=== PATIENT | female | born 1980 | race Two or more races ===

== ENCOUNTER 2021-03-24 09:51 | Outpatient (REF) | payer OTHER, SELFPAY ==
[2021-03-24 10:10] LABS: MANUAL DIFF FLAG NO
[2021-03-24 10:44] LABS: Estimated Average Glucose 100 mg/dL; Hemoglobin A1c % 5.1 %
[2021-03-24 10:47] LABS: Basophils Percent Auto 0.7 % (0-2); Eosinophils Absolute Auto 0.1 X10*3/uL (0.0-0.4); Eosinophils Percent Auto 1.4 % (0-4); Hematocrit 39.3 % (37.0-47.0); Imm Gran Abs Auto 0.01 X10*3/uL (0.00-0.03); Imm Gran Pct Auto 0.2 % (0.0-0.4); Lymphocytes Absolute Auto 1.2 X10*3/uL (1.2-4.9); Mean Corpuscular HGB Conc 33.1 g/dl (31.0-35.0); Mean Corpuscular Volume 93.6 fL (80.0-98.0); Monocytes Absolute Auto 0.4 X10*3/uL (0.1-1.2); Monocytes Percent Auto 8.2 % (2-11); Neutrophils Absolute Auto 2.7 x10*3/uL (2.0-8.3); Neutrophils Percent Auto 61.5 % (45-73); Platelet Count 267 X10*3/uL (160-400); Red Cell Distribution Width 12.3 % (11.0-16.0); White Blood Count 4.4 X10*3/uL (4.8-10.8)
[2021-03-24 11:13] LABS: Alanine Aminotransferase 14 U/L (0-31); Albumin Level 4.1 g/dL (3.5-5.0); Alkaline Phosphatase 38 U/L (39-117); Anion Gap 10 (12-20); Aspartate Amino Transferase 17 U/L (5-31); Bilirubin Total 0.5 mg/dL (0.0-1.0); Blood Urea Nitrogen 13 mg/dL (9-16); Calcium 9.2 mg/dL (8.4-10.2); Carbon Dioxide 29 mmol/L (22-29); Chloride 103 mmol/L (96-108); Cholesterol 213 mg/dL; Estimated Glomerular Filt Rate > 60; Glucose Fasting 80 mg/dL (60-99); HDL Cholesterol 80 mg/dL; LDL Cholesterol Calculated 123 mg/dl; Potassium 4.1 mmol/L (3.3-5.1); Sodium 138 mmol/L (135-145); Triglycerides 51 mg/dL
[2021-03-24 11:34] LABS: TSH reflex Free T4 3.23 uIU/mL (0.32-4.0)
[2021-03-24 11:43] LABS: Folate 9.1 ng/mL (> or = 4.0); Vitamin B12 498 pg/mL (200-900)
[2021-03-28 13:16] LABS: Vitamin D 25-OH, D2 <4 ng/mL; Vitamin D 25-OH, D3 26 ng/mL; Vitamin D 25-OH, Total 26 ng/mL (30-100)
== END 2021-03-24 09:52 | disposition home or self-care (01) ==
LOC: HO.LAB 09:51
PROVIDERS: Visit Provider Nurse Practitioner Acute Care
DX: Z00.00 Encounter for general adult medical examination without abnormal findings (principal)
CPT/HCPCS: 36415; 80053; 80061; 82306; 82607; 82746; 83036; 84443; 85025

== ENCOUNTER 2023-03-24 08:38 | Outpatient (AMB) | payer OTHER, SELFPAY ==
--- NOTE | 2023-03-24 08:44 | A.OFFPC_ITS ---
Vital Signs 03/24/23 08:45 03/24/23 09:14 Height 5 ft 4.5 in Weight 125 lb 6 oz BMI 21.2 BP 114/62 102/58 L Blood Pressure Location Lt brachial Rt brachial Position Sitting Sitting Pulse 71 Pulse Source Pulse Oximeter Pulse Oximetry (%) 100 Oxygen Delivery Method Room Air Intake Visit Reasons: Transfer of Care/[facility] Allergies No Known Allergies Allergy (Verified 03/24/23 09:02) Medication List - Last Reconciled 03/24/23 by Romy Jama, RELIGIOUS EDUCATION DIRECTOR- qotydypmxy-qcnvigynwzveu-dvzl 50-300-40 mg (Fioricet) 1 cap PO Q8H 4 days cholecalciferol (vitamin D3) 50 mcg PO DAILY Tobacco use date assessed: 03/24/23 Dental Screening Dental Screen Date: 03/24/23 Did you have a dental visit in the last 12 months?: Yes Did you have a dental problem in the last 6 months where you did not have access to dental care?: No Was dental information given to patient?: Patient has dentist HPI HPI Comments History of Present Illness Details 42-year-old female with vitamin-D deficiency, environmental allergies, migraine with aura, eczema, former smoker status post bunionectomy Health maintenance Mammogram - ordered today Pap smear - due, 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 This started 4-5 months ago. Admits hx of ETD to this ear at age 5-6 years old. Does not use ear buds. No drainage from the L ear. Rash on back [place] farm, thought it was allergic. Used topical eczema treatment w/o relief. Developed hives a few months after getting COVID vaccine. Was present for 1 year. 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 and was placed on 12 week therapy. Migraines well controlled. Uses rescue meds only. Reports tension and migraine type headaches. Tension headaches 2x/month and migraines w/ visual aura about twice per year. [facility] Medical History Environmental allergies Seasonal allergies Mgrn w aura wo ntrc mgrn Surgical History History of bunionectomy Social History Housing: Apartment Alcohol intake: current Alcohol intake frequency: a few times a month Patient Tobacco Use Status: Former Tobacco user Tobacco use type: Cigarette Years Smoked: 10 e-Cigarette/Vaping Use: Never Used service: No Current occupational status: unemployed Cognitive needs: No Hearing needs: No Vision needs: No Questionnaire PHQ-9 Over the last 2 weeks, how often have you been bothered by any of the following problems? 1. Little interest or pleasure in doing things: not at all 2. Feeling down, depressed, or hopeless: not at all 3. Trouble falling or staying asleep, or sleeping too much: not at all 4. Feeling tired or having little energy: not at all 5. Poor appetite or overeating: not at all 6. Feeling bad about yourself - or that you are a failure or have let yourself or your family down: not at all 7. Trouble concentrating on things, such as reading the newspaper or watching television: not at all 8. Moving or speaking so slowly that other people could have noticed. Or the opposite - being so fidgety or restless that you have been moving around a lot more than usual: not at all 9. Thoughts that you would be better off or of hurting yourself in some way: not at all Total score: 0 Depression Screening Interpretation: Negative Depression Screening Done: Yes 20348 - PHQ-9 Billing: Yes Source: Developed by Drs. Herson Mcfadden, Mony Espinoza, Xavier Noyola and colleagues, with an educational louise from [employer]. Thrive Questionnaire Date Thrive assessed: 03/24/23 I am a: Patient What is your living situation today?: I have a steady place to live Within the past 12 months, did the food you bought not last and you didn't have the money to get more?: Never true Within the past 12 months, did you worry whether your food would run out before you got money to buy more?: Never true Do you have trouble paying for medicines?: No Do you have trouble getting transportation to medical appointments?: No Do you have trouble paying your heating and electricity bill?: No Do you have trouble taking care of your child, family member or friend?: No Do you have trouble with day-to-day activities such as bathing, preparing meals, shopping, managing finances, etc.?: No Are you currently unemployed and looking for a job?: No Are you interested in more education?: No Please select the resources that you would like help with: None Currently or been in a relationship where the following occur: no concerns reported THRIVE Score: 0 AUDIT C Alcohol Use Questionnaire (AUDIT-C) 1. How often do you have a drink containing alcohol?: Never 2. How many drinks containing alcohol do you have on a typical day when you are drinking?: 1 or 2 3. How often do you have six or more drinks on one occasion?: Never Total Score: 0 Score Reviewed/Action Taken: Yes REBECCA-7 AMB Questionnaire REBECCA-7 Date REBECCA - 7 assessed: 03/24/23 Feeling nervous, anxious, or on edge: 0 = Not at all Not being able to stop or control worryin = Not at all Worrying too much about different things: 0 = Not at all Trouble relaxin = Not at all Being so restless that it is hard to sit still: 0 = Not at all Becoming easily annoyed or irritable: 0 = Not at all Feeling afraid as if something awful might happen: 0 = Not at all Total REBECCA-7 score (0-4 normal; 5-9 mild; 10-14 moderate; 15-21 severe): 0 Source: Developed by Drs. Herson Mcfadden, Mony Espinoza, Xavier Noyola and colleagues, with an educational louise from [employer]. REBECCA-7 Assessment Billing REBECCA-7 Assessment Tool: REBECCA-7 Assessment 76103 Review of Systems Const All systems reviewed & are unremarkable except as noted in HPI and below Physical exam (Primary Care) Vital Signs: Last Vital Signs Pulse 71 03/24/23 08:45 BP 102/58 L 03/24/23 09:14 Pulse Ox 100 03/24/23 08:45 Oxygen Delivery Method Room Air 03/24/23 08:45 BMI result Body Mass Index 21.2 Tobacco/Smoking Status: Tobacco use Status Tobacco use date assessed 03/24/23 03/24/23 08:49 Patient Tobacco Use Status Former Tobacco user 03/24/23 08:45 Tobacco use type Cigarette 03/24/23 08:45 e-Cigarette/Vaping Use Never Used 03/24/23 08:45 PHQ-9: PHQ-9 Score PHQ-9: Total score 0 03/24/23 09:04 Depression Screening Interpretation: Negative Thrive Assessment: Date of Thrive Assessment Date Thrive assessed 03/24/23 03/24/23 08:49 Currently or been in a relationship where the following occur: no concerns reported Const Other: Pleasant awake alert oriented TM intact clear bilat, hearing within normal limits Mucous membranes moist Regular rate and rhythm Lung sounds clear to auscultation bilat Eczematous rash to posterior trunk from the neck down to waistline without secondary excoriations were signs of infection. 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 daily for at least 1 month. I have sent in a new prescription for triamcinolone ointment which she can use as directed. I have also placed a referral to Dermatology for further evaluation and treatment should this treatment plan not remedy her rash Code(s): L30.9 - Dermatitis, unspecified Qualifiers: Eczema type: other Qualified Code(s): L30.8 - Other specified dermatitis (2) Hearing problem of both ears: Code(s): H91.93 - Unspecified hearing loss, bilateral Plan: Benign exam today of her ears. I have placed a referral to ENT for further evaluation and treatment (3) Screening for cervical cancer: Code(s): Z12.4 - Encounter for screening for malignant neoplasm of cervix Plan: Refer to [facility] inspector raw quartz for routine Pap smear and [facility] (4) Laboratory exam ordered as part of routine general medical examination: Code(s): Z00.00 - Encounter for general adult medical examination without abnormal findings (5) Vitamin D deficiency: Comment: Currently on vitamin-D supplementation. Will repeat vitamin-D level today Code(s): E55.9 - Vitamin D deficiency, unspecified (6) Mgrn w aura wo ntrc mgrn: Comment: On rescue Fioricet only. Migraines occurring only about twice per year. Not active with Neurology. I do not think there is any benefit for this at this time. Code(s): G43.109 - Migraine with aura, not intractable, without status migrainosus Plan: I will see her back in 2-3 months OR around her bday if she prefers for a CPE. Plan Total time spent caring for the patient today was 45 minutes. This includes time spent before the visit reviewing the chart, time spent during the visit, and time spent after the visit on documentation This note is constructed using voice recognition software. While every effort has been made to ensure accuracy in fluoroscope operator, still errors may have been included Sometimes, these errors may affect the content or meaning of the given sentence . Orders: Orders Lipid Panel Today E55.9 - Vitamin D deficiency, unspecified, Z00.00 - Encounter for general adult medical examination without abnormal findings TDaP Immunization Today Z23 - Encounter for immunization MM tomosynthesis screening BI Today E55.9 - Vitamin D deficiency, unspecified, Z00.00 - Encounter for general adult medical examination without abnormal findings, Z12.31 - Encounter for screening mammogram for malignant neoplasm of breast Comprehensive [place]. 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 Referral E55.9 - Vitamin D deficiency, unspecified, Z00.00 - Encounter for general adult medical examination without abnormal findings Dermatology Referral L30.9 - Dermatitis, unspecified Ear/Nose/Throat Referral H91.93 - Unspecified hearing loss, bilateral Medications: New triamcinolone acetonide 0.1% apply to rash on back for 2 weeks, stop 1 week, then repeat until healed 1 appl topical BID 80 grams 1RF Review Flu Vaccine not done: patient reason Coding Level of Care Code Est Pt Level 5 (86837) Diagnoses Other eczema L30.8 Eczema type: other Hearing problem of both ears H91.93 Screening for cervical cancer Z12.4 Laboratory exam ordered as part of routine general medical examination Z00.00 Vitamin D deficiency E55.9 Mgrn w aura wo [facility] mgrn G43.109 Additional Codes REBECCA-7 Assessment Billing - REBECCA-7 Assessment Tool: REBECCA-7 Assessment 28640 ([id number])
[2023-03-24 08:45] VITALS: BP 114/62; PULSE 71; O2SAT 100; BMI 21.2
[2023-03-24 09:14] VITALS: BP 102/58
== END 2023-03-24 09:36 | disposition home or self-care (01) ==
PROVIDERS: PCP Nurse Practitioner Acute Care; Visit Provider Nurse Practitioner Family
DX: L30.8 Other specified dermatitis (principal); H91.93 Unspecified hearing loss, bilateral; Z12.4 Encounter for screening for malignant neoplasm of cervix; Z00.00 Encounter for general adult medical examination without abnormal findings; E55.9 Vitamin D deficiency, unspecified; G43.109 Migraine with aura, not intractable, without status migrainosus; Z23 Encounter for immunization
CPT/HCPCS: 90471; 90715; 99215

== ENCOUNTER 2023-03-24 09:29 | Outpatient (REF) | payer OTHER, SELFPAY ==
[2023-03-24 12:29] LABS: Creatinine Urine 153.53 mg/dL; Microalbum/Creatinine Ratio Ur 4.5 ug/mg cr (<30)
[2023-03-24 12:36] LABS: Alanine Aminotransferase 12 U/L (0-31); Alkaline Phosphatase 34 U/L (39-117); Anion Gap 9 (12-20); Aspartate Amino Transferase 15 U/L (5-31); Bilirubin Total 0.3 mg/dL (0.0-1.0); Blood Urea Nitrogen 16 mg/dL (9-16); Calcium 8.4 mg/dL (8.4-10.2); Carbon Dioxide 26 mmol/L (22-29); Chloride 109 mmol/L (96-108); Cholesterol 183 mg/dL (<200); Estimated Glomerular Filt Rate > 60; Glucose Fasting 82 mg/dL (60-99); HDL Cholesterol 83 mg/dL (>40); LDL Cholesterol Calculated 93 mg/dL (<100); Potassium 3.7 mmol/L (3.3-5.1); Sodium 140 mmol/L (135-145); Triglycerides 38 mg/dL (<150)
[2023-03-28 13:09] LABS: VITAMIN D (1,25 OH) D3 67 pg/mL; Vit D (1,25-Dihydroxy) Total 67 pg/mL (18-72); Vitamin D (1,25 OH) D2 <8 pg/mL
== END 2023-03-24 09:30 | disposition home or self-care (01) ==
LOC: HO.WFDLDS 09:29
PROVIDERS: Visit Provider Nurse Practitioner Family
DX: Z00.00 Encounter for general adult medical examination without abnormal findings (principal); E55.9 Vitamin D deficiency, unspecified
CPT/HCPCS: 36415; 80053; 80061; 82043; 82570; 82652

== ENCOUNTER 2023-05-10 09:32 | Outpatient (REF) | payer OTHER, SELFPAY ==
[2023-05-11 11:21] LABS: BV Int Neg Control Negative (Negative); BV Int Pos Control Positive (Positive)
[2023-05-11 15:48] LABS: CT PCR NOT DETECTED (Not Detect.); NG PCR NOT DETECTED (Not Detect.)
[2023-05-14 22:14] LABS: HPV mRNA E6/E7 rflx Not Detected (Not Detected)
== END 2023-05-10 09:33 | disposition home or self-care (01) ==
LOC: HO.LNP 09:32
PROVIDERS: PCP Nurse Practitioner Family; Visit Provider Advanced Practice Midwife
DX: Z01.419 Encounter for gynecological examination (general) (routine) without abnormal findings (principal); N84.1 Polyp of cervix uteri; L30.8 Other specified dermatitis; G43.109 Migraine with aura, not intractable, without status migrainosus; Z20.2 Contact with and (suspected) exposure to infections with a predominantly sexual mode of transmission; Z97.5 Presence of (intrauterine) contraceptive device; Z79.899 Other long term (current) drug therapy
CPT/HCPCS: 0353U; 87480; 87510; 87624; 87660; 88142; 99386

== ENCOUNTER 2023-05-10 09:32 | Outpatient (AMB) | payer OTHER, SELFPAY ==
--- NOTE | 2023-05-10 09:39 | MHC.OFFVIS ---
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 Intake Note: wondering if Paragard has to be removed Employee Benefits Coordinator Required: No Information Interpreted: non-clinical & clinical Wireless Network Engineer: Wireless Network Engineer Present (Jero) Allergies No Known Allergies Allergy (Verified 05/10/23 09:41) Medication List - Last Reconciled 05/10/23 by Josefa Montelongo CNM qdtdqysfju-ernjydmdeeqox-fapw 50-300-40 mg (Fioricet) 1 cap PO Q8H 4 days cholecalciferol (vitamin D3) 50 mcg PO DAILY triamcinolone acetonide 0.1% 1 appl topical BID Is last menstrual period known: Yes Last menstrual period: 04/19/23 Post menopausal: No 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 She moved from [facility] in 2019 pre pandemic she lives in [place]. She is with 2 children she has no major concerns she does have issues with eczema and dry skin that she is challenged by. She has been seeing an label press operator for this. She has never had an abnormal Pap smear she has a ParaGard IUD that she has had since 2015 and she thought it needed to be replaced in 8 years. Her periods have gotten a little bit heavier and crampier. as far she knows she is not anemic. She thinks her primary ordered a mammogram but she has not scheduled it yet.. She delivered her children at the midwifery practice it [facility] in [facility]. She is healthy. She was curious about replacing her ParaGard and is worried that that it will hurt and thought it needed to be done now. PENDING SALE TO [facility] Medical History Environmental allergies Seasonal allergies [facility] Surgical History History of bunionectomy Social History (Updated 05/10/23 @ 09:43 by ASHER Cassidy) Housing: Apartment Alcohol intake: current Alcohol intake frequency: a few times a month Patient Tobacco Use Status: Former Tobacco user Tobacco use type: Cigarette Years Smoked: 10 e-Cigarette/Vaping Use: Never Used Use of substances other than those prescribed or required for medical reasons: Yes Substance Use Type: Marijuana service: No Current occupational status: unemployed Cognitive needs: No Hearing needs: No Vision needs: No Female Reproductive History Menstrual Age of Menarche: 14 Duration of menses: 3-5 days Date of last menstrual period: 04/19/23 control method: copper IUCD Total pregnancies: 2 Full term: 2 Number of Living Children: 2 Physical Exam Vital Signs: Last Vital Signs BP 92/60 05/10/23 09:40 BMI result Body Mass Index 20.4 Const General: healthy appearing, comfortable, no acute distress, well developed and alert Nutritional Appearance: average body habitus Orientation/consciousness: patient oriented x3 Limitations: no limitations HEENT Head: Yes normocephalic Neck Neck: Yes normal visual inspection Chest Chest palpation & inspection: normal inspection of the chest Breast/axilla inspection: normal inspection of the breasts and normal inspection of the axillae Breast/axilla palpation: normal palpation of the breasts and normal palpation of the axillae Resp Effort & Inspection: normal respiratory effort GI Inspection: Yes normal to inspection, No Abdominal wall edema and No distended Palpation (GI): Soft to palpation and nontender Other: Multiparous cervix ParaGard strings visible in os cervix friable with Pap smear polyp visible within the cervix does not protrude beyond the os but is friable. Cervix mobile nontender uterus small firm posterior retroverted nontender good tone with Kegel. Normal appearing mucus. General: Yes bladder normal to palpation External Female Exam: normal external appearance and normal appearance of the urethra Speculum Exam - Vagina: normal appearance of the vagina, normal palpation and normal vaginal discharge Speculum Exam - Cervix: normal appearance of the cervix, normal palpation and nontender Bimanual exam- vagina & uterus: normal bimanual exam, normal palpation, uterine size normal, bladder normal to palpation, consistency normal, normal palpation, uterine mobility normal, uterine shape normal, No Cervical tenderness present, non-tender and no cervical motion tenderness Bimanual Exam- Adnexa, other: normal adnexae, no masses, normal and No adnexal tenderness Neuro General: patient oriented x3 Assessment & Plan Assessment & Plan (1) IUD (intrauterine device) in place: Comment: paraGuard IUD inserted around 2014, due for replacement 2024. Code(s): Z97.5 - Presence of (intrauterine) contraceptive device (2) Cervical polyp: Code(s): N84.1 - Polyp of cervix uteri (3) Eczema: Comment: I have advised her to take Zyrtec 10 mg p.o. daily for at least 1 month. I have sent in a new prescription for triamcinolone ointment which she can use as directed. I have also placed a referral to Dermatology for further evaluation and treatment should this treatment plan not remedy her rash Code(s): L30.9 - Dermatitis, unspecified Qualifiers: Eczema type: other Qualified Code(s): L30.8 - Other specified dermatitis (4) Mgrn w aura wo ntrc mgrn: Comment: On rescue Fioricet only. Migraines occurring only about twice per year. Not active with Neurology. I do not think there is any benefit for this at this time. Code(s): G43.109 - Migraine with aura, not intractable, without status migrainosus Plan -----Discussed in this visit the following: healthy balanced diet, regular and consistent exercise, getting recommended health screens, doing the best she can for her particular health concerns, kegel exercises, pap smear screening and followup recommendations, mammography screening and SBE, normal changes in cycles in her life stage--- . She already has her mammogram ordered I did a Pap smear as well as cultures. I reviewed her ParaGard IUD and reviewed that she is not anemic as of the March blood work that was done via her P[facility]. Discussed that many women become more aware of periods becoming more crampy and premenstrual symptoms and symptoms of ovulation with advancing years. Discussed that these are probably not attributable to the ParaGard IUD. In terms of the ParaGard it does not need to be replaced until 2024. I did see a polyp in her cervix I am ordering a pelvic ultrasound to see if there is anything else that is of note and we will have a tele visit follow-up after that after that visit then she will be referred to Dr. Panda for probable removal of the cervical polyp if it is reachable. Discussed that depending on what is discussed at that visit consideration may be made to replacing the ParaGard IUD slightly earlier if it needs to be removed in order to remove the polyp however that can be discussed at a future visit with Dr. Panda. Reviewed that she would need to sign paperwork ahead of time so that we can have her insurance company order it. Pap smear was done as well as testing for gonorrhea chlamydia trichomoniasis Mandie and Gardnerella.. I also discussed dry skin and eczema and recommended the following: I reviewed dry skin care in detail including my recommendations for trying to not take showers that are too hot, and to apply a skin cream such as Eucerin, or equivalent, immediately after briefly towel, drying after coming out of the shower to seal in the moisture. I recommend that if she feels her skin start to tingle and dry up before she has had a chance to thoroughly apply the cream all over, she should jump back in the shower to re wet her skin, and start the process over again. The goal is to help seal in the moisture on her skin cresencio, by using the Eucerin, or other brand hypoallergenic moisturizer as a protectant. I recommend not to skip this procedure for even 1 shower cycle during the dry winter season. Orders: Orders Bacterial Vaginosis Panel Today Z20.2 - Contact with and (suspected) exposure to infections with a predominantly sexual mode of transmission Pap Smear Today Z12.4 - Encounter for screening for malignant neoplasm of cervix US pelvic and transvaginal Today N84.1 - Polyp of cervix uteri, Z97.5 - Presence of (intrauterine) contraceptive device CT NG by PCR Today Z20.2 - Contact with and (suspected) exposure to infections with a predominantly sexual mode of transmission Coding Level of Care Code New Pt Prev Care 40-64y([id number]) Diagnoses IUD (intrauterine device) in place Z97.5 Cervical polyp N84.1 Other eczema L30.8 Eczema type: other Mgrn w roslyna wo ntr mgrn G43.109
[2023-05-10 09:40] VITALS: BP 92/60; BMI 20.4
== END 2023-05-10 11:33 | disposition home or self-care (01) ==
PROVIDERS: PCP Nurse Practitioner Family; Visit Provider Advanced Practice Midwife
DX: Z01.419 Encounter for gynecological examination (general) (routine) without abnormal findings (principal); N84.1 Polyp of cervix uteri; L30.8 Other specified dermatitis; G43.109 Migraine with aura, not intractable, without status migrainosus
CPT/HCPCS: 99386

== ENCOUNTER 2023-05-17 08:29 | Outpatient (REF) | payer OTHER, SELFPAY ==
--- NOTE | ~2023-05-17 | MM_ITS ---
EXAMINATION: MM SCREENING DIGITAL BREAST TOMOSYNTHESIS, BILATERAL CLINICAL INFORMATION: Screening. Asymptomatic. COMPARISON: Mammography: This is a baseline mammogram TECHNIQUE: Digital breast tomosynthesis is performed in both the craniocaudal and mediolateral oblique views along with computer-aided detection (CAD). Synthesized 2D images are generated from the tomosynthesis. FINDINGS: The breasts are heterogeneously dense, which may obscure small masses (ACR BI-RADS breast composition Category c). There are no significant masses, abnormal calcifications, or other abnormalities. MM/MM tomosynthesis screening BI IMPRESSION: No mammographic evidence of malignancy. ASSESSMENT: BI-RADS BI-RADS 1 - Negative RECOMMENDATION: Routine annual mammography screening. 1 year F/U This examination should not preclude the clinical evaluation of a suspicious palpable abnormality. This patient's information was entered into a reminder system with a target due date for their next mammogram.
== END 2023-05-17 08:30 | disposition home or self-care (01) ==
LOC: HO.MAMMO 08:29
PROVIDERS: Visit Provider Nurse Practitioner Family
DX: Z12.31 Encounter for screening mammogram for malignant neoplasm of breast (principal)
CPT/HCPCS: 77063; 77067

== ENCOUNTER → 2023-05-17 08:32 | Outpatient (BNV) | payer OTHER, SELFPAY | PROVIDERS: Visit Provider Radiology Diagnostic Radiology | DX: Z12.31 Encounter for screening mammogram for malignant neoplasm of breast (principal) | CPT/HCPCS: 77063; 77067 ==

== ENCOUNTER 2023-05-24 13:13 | Outpatient (REF) | payer OTHER, SELFPAY ==
--- NOTE | ~2023-05-24 | US_ITS ---
EXAMINATION: US PELVIS CLINICAL INFORMATION: Cervical polyp; the last menstrual period was one week prior. COMPARISON: None available. TECHNIQUE: Ultrasound of the pelvis is performed using both transabdominal and transvaginal transducers along with Doppler. Transvaginal imaging is performed due to inadequate visualization transabdominally. FINDINGS: Uterus: The uterus is anteverted and retroflexed. The uterus measures 8.0 x 4.1 x 4.1 cm. Nabothian cysts are seen within the cervix. An intrauterine device is seen, properly situated within the endometrial canal. The endometrial stripe is thin and is not appreciated with certainty. The uterus is smooth in contour and has normal myometrial echogenicity. No visible fibroid. Adnexa: Both ovaries are visualized. There is normal color flow to the adnexa. There is no ovarian torsion. There is no pelvic ascites or fluid collection. Right ovary measures 2.8 x 1.4 x 1.5 cm, volume 3.1 mL. The right ovary contains a 1.2 cm benign, simple cyst, for which no imaging follow-up is recommended. Left ovary measures 2.4 x 1.8 x 1.5 cm, volume 3.4 mL. US/US pelvic and transvaginal IMPRESSION: 1. Nabothian cysts are seen within the cervix. 2. An intrauterine device is seen, properly situated within the endometrial canal. 3. No cervical or endometrial polyp is presently noted.
== END 2023-05-24 13:14 | disposition home or self-care (01) ==
LOC: HO.US 13:13
PROVIDERS: Visit Provider Advanced Practice Midwife
DX: N84.1 Polyp of cervix uteri (principal); Z97.5 Presence of (intrauterine) contraceptive device
CPT/HCPCS: 76830; 76856

== ENCOUNTER 2023-05-26 09:18 | Outpatient (AMB) | payer OTHER, SELFPAY ==
--- NOTE | 2023-05-26 09:19 | MHC.PC.OV ---
Vital Signs 05/26/23 09:21 Height 5 ft 4.5 in Weight 121 lb 6 oz BMI 20.5 BP 102/56 L Blood Pressure Location Lt brachial Position Sitting Pulse 82 Pulse Source Pulse Oximeter Pulse Oximetry (%) 98 Oxygen Delivery Method Room Air Intake Visit Reasons: 2 mth follow up Air Twister Winder Required: No Accompanied by: Self / Same As Patient Allergies No Known Allergies Allergy (Verified 05/26/23 09:30) Medication List - Last Reconciled 05/26/23 by Romy Jama, JERSON-JANETTE sghjltayfs-ckbwlyfqfgggn-smwg 50-300-40 mg (Fioricet) 1 cap PO Q8H 4 days triamcinolone acetonide 0.1% 1 appl topical BID Tobacco use date assessed: 05/26/23 Dental Screening Dental Screen Date: 03/24/23 HPI HPI Comments History of Present Illness Details 42-year-old female with vitamin-D deficiency, environmental allergies, migraine with aura, eczema, former smoker, cervical polyp status post bunionectomy Health maintenance Mammogram - 05/2023 BI-RADS BI-RADS 1 - Negative Pap smear - 05/10/2023 negative HPV, IUD Paraguard to be replaced in 2024 Vaccines declined flu, UTD on COVID vaccine, Tdap [facility] Here today to f/u on rash, hearing and migraines. Taking antihistamine for the last 30 days w/o minimal improvement of rash on back. Using topical steroid cream as directed. Minus the rash, feels allergy sx are improved. Waiting on ENT at this time. Cont w/ hearing complaints, no changes. Migraines remain stable. Labs 03/2023 WNL. Vitamin D Normal - was not taking supp at time of draw. Only Multivitamin. [facility] Medical History Environmental allergies Seasonal allergies Mgrn w aura wo ntrc mgrn Surgical History History of bunionectomy Social History Housing: Apartment Alcohol intake: current Alcohol intake frequency: a few times a month Patient Tobacco Use Status: Former Tobacco user Tobacco use type: Cigarette Years Smoked: 10 e-Cigarette/Vaping Use: Never Used Substance Use Type: Marijuana service: No Current occupational status: unemployed Cognitive needs: No Hearing needs: No Vision needs: No Female Reproductive History Menstrual Age of Menarche: 14 Questionnaire Thrive Questionnaire Date Thrive assessed: 03/24/23 REBECCA-7 AMB Questionnaire REBECCA-7 Date REBECCA - 7 assessed: 03/24/23 Source: Developed by Drs. Herson Mcfadden, Mony Espinoza, Xavier Noyola and colleagues, with an educational louise from [employer]. Review of Systems Const All systems reviewed & are unremarkable except as noted in HPI and below Physical exam (Primary Care) Vital Signs: Last Vital Signs Pulse 82 05/26/23 09:21 BP 102/56 L 05/26/23 09:21 Pulse Ox 98 05/26/23 09:21 Oxygen Delivery Method Room Air 05/26/23 09:21 BMI result Body Mass Index 20.5 Tobacco/Smoking Status: Tobacco use Status Tobacco use date assessed 05/26/23 05/26/23 09:25 Patient Tobacco Use Status Former Tobacco user 05/26/23 09:20 Tobacco use type Cigarette 05/26/23 09:20 e-Cigarette/Vaping Use Never Used 05/26/23 09:20 Thrive Assessment: Date of Thrive Assessment Date Thrive assessed 03/24/23 05/26/23 09:20 Const Other: Pleasant awake alert oriented Eczematous rash to posterior trunk, limited to lateral aspects near bra line bilat. The rash on upper back is scarred, no current rash noted. Same of lower back. without secondary excoriations or signs of infection. Assessment and Plan Assessment & Plan (1) Eczema: Comment: With some improvement Cont to take Zyrtec 10 mg p.o. daily & triamcinolone ointment as directed. Start singulair 10mg po QHS. If no improvement in 1 month, STOP and let me know via the portal. If + improvement, please also update me on the portal and continue There is a Derm referral in place - nothing scheduled yet; PRN no improvement. Code(s): L30.9 - Dermatitis, unspecified Qualifiers: Eczema type: other Qualified Code(s): L30.8 - Other specified dermatitis (2) Vitamin D deficiency: Comment: Vit D WNL w/ MVI only. Ok to continue, no need for addl supplementation Code(s): E55.9 - Vitamin D deficiency, unspecified (3) Seasonal allergies: Comment: see eczema Code(s): J30.2 - Other seasonal allergic rhinitis (4) Mgrn w aura wo [facility] mgrn: Comment: On rescue Fioricet only. Migraines occurring only about twice per year. Not active with Neurology. I do not think there is any benefit for this at this time. Code(s): G43.109 - Migraine with aura, not intractable, without status migrainosus Plan This note is constructed using voice recognition software. While every effort has been made to ensure accuracy in traffic clerk, still errors may have been included Sometimes, these errors may affect the content or meaning of the given sentence . Total time spent caring for the patient today was 30 minutes. This includes time spent before the visit reviewing the chart, time spent during the visit, and time spent after the visit on documentation Medications: New montelukast (Singulair) 10 mg PO BEDTIME 30 tabs 1RF Patient Instructions: RTO IN AUGUST FOR CPE, SOONER PRN. PLZ UPDATE ME ON PORTAL RE: SINGULAIR Coding Level of Care Code Est Pt Level 4 (18898) Diagnoses Other eczema L30.8 Eczema type: other Vitamin D deficiency E55.9 Seasonal allergies J30.2 Mgrn w aura wo [facility] mgrn G43.109
[2023-05-26 09:21] VITALS: BP 102/56; PULSE 82; O2SAT 98; BMI 20.5
== END 2023-05-26 09:49 | disposition home or self-care (01) ==
PROVIDERS: PCP Nurse Practitioner Family; Visit Provider Nurse Practitioner Family
DX: L30.8 Other specified dermatitis (principal); E55.9 Vitamin D deficiency, unspecified; Z87.891 Personal history of nicotine dependence; J30.2 Other seasonal allergic rhinitis; G43.109 Migraine with aura, not intractable, without status migrainosus
CPT/HCPCS: 99214

== ENCOUNTER 2023-06-03 11:24 | Outpatient (AMB) | payer OTHER, SELFPAY ==
[2023-06-03 11:31] VITALS: BP 110/64; BMI 21.5
--- NOTE | 2023-06-03 11:31 | MHC.OFFVIS ---
Vital Signs 06/03/23 11:31 Height 5 ft 4.5 in Weight 127 lb BMI 21.5 BP 110/64 Intake Visit Reasons: Ultrasound follow up Creosoting Engineer Required: No Information Interpreted: clinical only Lead Electrical Controls Engineer: Lead Electrical Controls Engineer Present Allergies No Known Allergies Allergy (Verified 06/03/23 11:32) Medication List - Last Reconciled 06/03/23 by Josefa Montelongo CNM xvpbapswwg-xeniusibijlkp-hecm 50-300-40 mg (Fioricet) 1 cap PO Q8H 4 days copper (ParaGard T 380A) intrauterine montelukast (Singulair) 10 mg PO BEDTIME triamcinolone acetonide 0.1% 1 appl topical BID Is last menstrual period known: Yes Last menstrual period: 05/12/23 Do you need a note to return to daycare/school/sports/work: No HPI HPI Ultrasound follow up: Details: Patient is here to review her ultrasound which was done to check to see if there is any other pathology visible status post a visit where a cervical polyp was noted during the exam patient has a ParaGard IUD inserted 2014. PFSH Medical History Environmental allergies Seasonal allergies Mgrn w aura wo ntrc mgrn Surgical History History of bunionectomy Social History Housing: Apartment Alcohol intake: current Alcohol intake frequency: a few times a month Patient Tobacco Use Status: Former Tobacco user Tobacco use type: Cigarette Years Smoked: 10 e-Cigarette/Vaping Use: Never Used Substance Use Type: Marijuana service: No Current occupational status: unemployed Cognitive needs: No Hearing needs: No Vision needs: No Female Reproductive History Menstrual Age of Menarche: 14 Duration of menses: 3-5 days Date of last menstrual period: 05/12/23 control method: copper IUCD Total pregnancies: 2 Full term: 2 Date of last pap smear: 05/11/23 (negative) History of abnormal pap smear: No Date of Mammogram: 05/17/23 (negative) History of abnormal mammogram: No Physical Exam Vital Signs: Last Vital Signs BP 110/64 06/03/23 11:31 BMI result Body Mass Index 21.5 Results Reviewed Results Reviewed: [address] [address] Ultrasound Report Signed Patient: Lore Power MR#: [id number] : 1980 Acct:[id number] Age/Sex: 42 / F ADM Date: 05/24/23 Loc: HO.US Attending Dr: Josefa Montelongo CNM Ordering Physician: Josefa Montelongo CNM Date of Service: 05/24/23 Procedure(s): US pelvic and transvaginal Accession Number(s): [id number] cc: Josefa Montelongo CNM~ EXAMINATION: US PELVIS CLINICAL INFORMATION: Cervical polyp; the last menstrual period was one week prior. COMPARISON: None available. TECHNIQUE: Ultrasound of the pelvis is performed using both transabdominal and transvaginal transducers along with Doppler. Transvaginal imaging is performed due to inadequate visualization transabdominally. FINDINGS: Uterus: The uterus is anteverted and retroflexed. The uterus measures 8.0 x 4.1 x 4.1 cm. Nabothian cysts are seen within the cervix. An intrauterine device is seen, properly situated within the endometrial canal. The endometrial stripe is thin and is not appreciated with certainty. The uterus is smooth in contour and has normal myometrial echogenicity. No visible fibroid. Adnexa: Both ovaries are visualized. There is normal color flow to the adnexa. There is no ovarian torsion. There is no pelvic ascites or fluid collection. Right ovary measures 2.8 x 1.4 x 1.5 cm, volume 3.1 mL. The right ovary contains a 1.2 cm benign, simple cyst, for which no imaging follow-up is recommended. Left ovary measures 2.4 x 1.8 x 1.5 cm, volume 3.4 mL. US/US pelvic and transvaginal IMPRESSION: 1. Nabothian cysts are seen within the cervix. 2. An intrauterine device is seen, properly situated within the endometrial canal. 3. No cervical or endometrial polyp is presently noted. Dictated By: Matt Serra MD Signed By: <Electronically signed by Matt Serra MD in OV> 05/27/23 1108 DD/ 1326 TD/TT: Name: Lore Power Age/Sex: 42/F Attending: Josefa Montelongo CNM : 1980 Submitted by: Josefa Montelongo CNM Copies to: Romy Jama MR #: [id number] Status: DEP REF Collected: 05/10/23 Location: [facility] Received: 05/11/23 Interpretation Satisfactory for evaluation. No endocervical cells seen. Moderate inflammation. Negative for intraepithelial lesion or malignancy. HPV mRNA E6/E7: NOT DETECTED This assay detects E6/E7 viral messenger RNA (mRNA) from 14 high-risk HPV types (16, 18, 31, 33, 35, 39, 45, 51, 52, 56, 58, 59, 66, 68) HPV testing performed by [facility], [place], [place]. See reference laboratory portion of the EMR for entire report. Clinical Information LMP: 04/19/2023 Previous PAP test: Unknown date/findings Material Received ThinPrep-Cervical Copies To Josefa Montelongo CNM [address] [place] [address] [place] [address] Romy Jama [address] [place] [address] Electronically Signed By: ZULMA Friedman ([facility]) 05/28/23 0922 The Pap Test is a screening procedure with the inherent possibility of both false negative and false positive results. Results should be interpreted in the context of historic and current clinical findings. Reliability of the Pap Test is enhanced by performing the test on a regular repetitive basis. Patient: Lore Power Age/Sex: 42/F MR#: [id number] Page 1 of 1 Assessment & Plan Assessment & Plan (1) Cervical cancer screening: Comment: 05/10/2023 Pap is negative with negative HPV. Code(s): Z12.4 - Encounter for screening for malignant neoplasm of cervix Category: Medical (2) IUD (intrauterine device) in place: Comment: paraGuard IUD inserted around 2014, due for replacement 2024. Code(s): Z97.5 - Presence of (intrauterine) contraceptive device Category: Social Hx (3) Cervical polyp: Comment: 05/10/2023 Pap is negative with negative HPV., u/s ordered to check for anything else, then to be scheduled w [facility] after review of pelvic u/s. Code(s): N84.1 - Polyp of cervix uteri Category: Medical Plan I reviewed the ultrasound with her. The polyp was not visible on ultrasound. Of note the patient had. Right before the ultrasound which accounts for the thin lining the IUDs in the proper place. Her next visit will be with Dr. Panda and it will be discussion about whether not he can see the polyp and therefore it should be removed. Discussed that her ParaGard IUD would be due for replacement next year discussed that normally we would plan to remove 1 and replace it with another which case it would be to be ordered have time. Next visit with Dr. Panda. Her Pap smear was normal and her mammogram was normal as well. Coding Level of Care Code Est Pt Level 3 (39982) Diagnoses Cervical cancer screening Z12.4 IUD (intrauterine device) in place Z97.5 Cervical polyp N84.1
== END 2023-06-03 12:01 | disposition home or self-care (01) ==
PROVIDERS: PCP Nurse Practitioner Family; Visit Provider Advanced Practice Midwife
DX: Z12.4 Encounter for screening for malignant neoplasm of cervix (principal); Z97.5 Presence of (intrauterine) contraceptive device; N84.1 Polyp of cervix uteri
CPT/HCPCS: 99213

== ENCOUNTER → 2023-06-03 11:24 | Outpatient (BNVA) | payer OTHER, SELFPAY | PROVIDERS: PCP Nurse Practitioner Family; Visit Provider Advanced Practice Midwife | DX: Z12.4 Encounter for screening for malignant neoplasm of cervix (principal); N84.1 Polyp of cervix uteri; Z97.5 Presence of (intrauterine) contraceptive device | CPT/HCPCS: 99212 ==

== ENCOUNTER 2024-08-19 22:27 | Emergency (ER) | payer OTHER, SELFPAY ==
--- NOTE | 2024-08-19 22:31 | ECG_ITS ---
Test Reason : CP Blood Pressure : */* mmHG Vent. Rate : 60 BPM Atrial Rate : 60 BPM P-R Int : 150 ms QRS Dur : 78 ms QT Int : 440 ms P-R-T Axes : -28 65 36 degrees QTcB Int : 440 ms Normal sinus rhythm Normal ECG No previous ECGs available Referred By: Generic ED Physician Electronically Signed By: Noah Rodriguez
[2024-08-19 22:45] VITALS: BP 112/52; PULSE 56; RESP 16; TEMP 36.9; O2SAT 99; BMI 22.5
[2024-08-19 23:11] LABS: MANUAL DIFF FLAG NO
[2024-08-19 23:12] LABS: Hematocrit 35.7 % (37.0-47.0); Hemoglobin 12.4 g/dl (12.0-16.0); Imm Gran Abs Auto 0.02 X10*3/uL (0.00-0.03); Imm Gran Pct Auto 0.4 % (0.0-0.4); Lymphocytes Absolute Auto 1.7 X10*3/uL (1.2-4.9); Mean Corpuscular HGB Conc 34.7 g/dl (31.0-35.0); Mean Corpuscular Hemoglobin 31.1 pg (27.0-33.0); Mean Corpuscular Volume 89.5 fL (80.0-98.0); NRBC Abs Auto 0.000 X10*3/uL (0.0-0.012); NRBC Pct Auto 0.0 /100WBC (0.0-0.2); Platelet Count 284 X10*3/uL (160-400); Red Blood Count 3.99 X10*6/uL (4.20-5.50); White Blood Count 4.9 X10*3/uL (4.8-10.8)
[2024-08-19 23:30] LABS: Alanine Aminotransferase 9 U/L (0-31); Albumin Level 4.1 g/dL (3.5-5.0); Alkaline Phosphatase 38 U/L (39-117); Anion Gap 10 (12-20); Blood Urea Nitrogen 10 mg/dL (9-16); Calcium 8.8 mg/dL (8.4-10.2); Carbon Dioxide 25 mmol/L (22-29); Chloride 109 mmol/L (96-108); Creatinine Clr Calc Pharmacy 79.2; Estimated Glomerular Filt Rate > 60; Magnesium 2.0 mg/dL (1.6-2.6); Potassium 3.9 mmol/L (3.3-5.1); Sodium 140 mmol/L (135-145); Total Protein 6.9 g/dL (6.5-8.0)
[2024-08-19 23:32] LABS: Troponin-I High Sensitivity < 2.7 ng/L (<3.5-17.0)
--- NOTE | 2024-08-19 23:39 | ED.CHESTPAIN ---
HPI - Chest Pain General Chief Complaint: Chest Pain Stated Complaint: chest pain/pressure Time Seen by Provider: 08/19/24 23:39 History of Present Illness ED Provider: Gail HARRIS narrative: The patient is an ordinarily healthy 44-year-old woman who had an episode of chest discomfort after eating food at at [employer] this afternoon at around 17:30. She says that at the time of the discomfort she felt quite uncomfortable and felt that her chest was quite constricted. The symptoms lasted for about an hour and then seemed to subside. Later in the evening, when she was putting her children to bed at around 21:30, she has a recurrence of the discomfort. The recurrence was much less severe than the original discomfort but it was persistent and she ultimately felt she should come to the emergency room for evaluation. No pain or swelling in her legs. No fever, sweats, chills. The pain is nonpleuritic. She has no significant past medical history. She is on no medications. She has an IUD for contraception. She is a nonsmoker. There is no family history of early coronary disease. No family history of early thromboembolic disease. No history of diabetes or hypertension. She says that normally her blood pressures are low. She says that a 28-year-old cousin of hers recently in her sleep unexpectedly. This has been on the patient's mind and this made the patient worry about this chest pain more than she might have otherwise. Related Data Home Medications ?Medication ?Instructions ?Recorded ?Confirmed copper 380 square mm intrauterine intrauterine 06/03/23 06/03/23 device (ParaGard T 380A) Previous Rx's ?Medication ?Instructions ?Recorded triamcinolone acetonide 0.1 % 1 appl topical BID #80 grams 03/24/23 topical ointment montelukast 10 mg tablet 10 mg PO BEDTIME #30 tabs 05/26/23 (Singulair) wlsrxqlrnr-ahfpnzzjjfqab-watvkotw 1 cap PO ONCE PRN migraine 15 days 07/22/23 50 mg-300 mg-40 mg capsule #15 caps (Fioricet) Allergies Allergy/AdvReac Type Severity Reaction Status Date / Time Seasonal Allergies AdvReac Hives Verified 08/19/24 22:45 Review of Systems Review of Systems: Yes all other systems are reviewed and are negative [facility] Past Medical History Medical History Environmental allergies Seasonal allergies Mgrn w aura wo ntrc mgrn Surgical History History of bunionectomy Social History Social History Housing: Apartment Alcohol intake: current Alcohol intake frequency: a few times a month Patient Tobacco Use Status: Former Tobacco user Tobacco use type: Cigarette Years Smoked: 10 Smoked in Last 30 Days: No e-Cigarette/Vaping Use: Never Used Substance Use Type: Marijuana Substance Use Frequency: Occasionally Advance Directives: No Advance Directives Information Provided: Yes service: No Current occupational status: unemployed Cognitive needs: No Hearing needs: No Vision needs: No Physical Exam Vital Signs: Vital Signs: Last Vital Signs Temp 98.3 F 08/20/24 00:08 Pulse 56 08/20/24 00:08 Resp 16 08/20/24 00:08 BP 116/51 L 08/20/24 00:08 Pulse Ox 98 08/20/24 00:08 O2 Del Method Room Air 08/20/24 00:08 BMI result Body Mass Index 22.5 Const: Other: The patient is a slim, very healthy looking 44-year-old who was awake, alert, pleasant, cooperative and does not appear in any distress whatsoever. Orientation/consciousness: patient oriented x3 HEENT: Other: The face is symmetrical. ?Mucous membranes moist. Eyes: Other: Pupils are round equal, conjunctivae are clear, extraocular movements intact Neck: Neck: Yes normal visual inspection, Yes full ROM and Yes no JVD Resp: Effort & Inspection: normal respiratory effort Auscultation: clear to auscultation bilaterally Cardio: Rate: regular rate Rhythm: regular rhythm Heart sounds: S1 normal heart sound present and S2 normal heart sound present GI: Other: The abdomen is flat, soft, nontender. Specifically no right upper quadrant tenderness. Skin: Other: The skin is dry and unremarkable Neuro: General: patient oriented x3, tone normal, moves all extremities, no focal motor deficits and CN's II-XI intact bilaterally Extrem: Other: There is no calf swelling or tenderness. No asymmetry. No peripheral edema. Medical Decision Making Medical Decision Making [facility] Narrative: The patient is a healthy looking 44-year-old who presents for evaluation of nonpleuritic chest pain that she 1st experienced after eating a meal at [employer] and which was significant for an hour before improving spontaneously but then which returned later this evening to a lesser degree. She has a an unremarkable EKG. Unremarkable troponin. Her vital signs are very reassuring. She looks extremely healthy and I think she does not have any risk factors for early coronary disease and I do not think she has any significant risk factors for thromboembolic disease or vascular disease of any kind. I think that this syndrome is probably much more likely to be a gastrointestinal syndrome such as reflux rather than an acute coronary syndrome, pulmonary embolism, or aortic dissection. She was offered Maalox but would prefer to go home and take some Tums at home. I think this is reasonable. She should return if worse. She should follow up with her PCP. Lab Data 08/19/24 23:06 08/19/24 23:06 Labs: Lab Results 08/19/24 Range/Units 23:06 WBC 4.9 (4.8-10.8) X10*3/uL RBC 3.99 L (4.20-5.50) X10*6/uL Hgb 12.4 (12.0-16.0) g/dl Hct 35.7 L (37.0-47.0) % MCV 89.5 (80.0-98.0) fL MCH 31.1 (27.0-33.0) pg MCHC 34.7 (31.0-35.0) g/dl RDW 13.0 (11.0-16.0) % Plt Count 284 (160-400) X10*3/uL MPV 8.8 L (9.4-12.3) fL Immature Gran % (Auto) 0.4 (0.0-0.4) % Neut % (Auto) 54.5 (45-73) % Lymph % (Auto) 34.1 (20-40) % Hart % (Auto) 7.6 (2-11) % Eos % (Auto) 2.4 (0-4) % Baso % (Auto) 1.0 (0-2) % Lymph # (Auto) 1.7 (1.2-4.9) X10*3/uL Hart # (Auto) 0.4 (0.1-1.2) X10*3/uL Eos # (Auto) 0.1 (0.0-0.4) X10*3/uL Baso # (Auto) 0.1 (0.0-0.2) X10*3/uL Abs Immat Gran (auto) 0.02 (0.00-0.03) X10*3/uL Absolute Neuts (auto) 2.7 (2.0-8.3) x10*3/uL Absolute Nucleated RBC 0.000 (0.0-0.012) X10*3/uL Nucleated RBC % (auto) 0.0 (0.0-0.2) /100WBC Sodium 140 (135-145) mmol/L Potassium 3.9 (3.3-5.1) mmol/L Chloride 109 H (96-108) mmol/L Carbon Dioxide 25 (22-29) mmol/L Anion Gap 10 L (12-20) BUN 10 (9-16) mg/dL Creatinine 0.79 (0.5-1.4) mg/dL Estim Creat Clear Calc 79.2 Estimated GFR > 60 Random Glucose 93 (60-115) mg/dL Calcium 8.8 (8.4-10.2) mg/dL Magnesium 2.0 (1.6-2.6) mg/dL Total Bilirubin 0.2 (0.0-1.0) mg/dL AST 15 (5-31) U/L ALT 9 (0-31) U/L Alkaline Phosphatase 38 L (39-117) U/L Troponin I High Sens < 2.7 (<3.5-17.0) ng/L Total Protein 6.9 (6.5-8.0) g/dL Albumin 4.1 (3.5-5.0) g/dL Independent Interpretation I performed an independent interpretation of an: EKG Interpretation: EKG at 22:33 shows normal sinus rhythm at 60 beats per minute. It is a normal EKG. No old EKGs available for comparison. Discharge Plan Discharge Clinical Impression: Chest pain Patient Disposition: Home, Self-Care Additional Instructions: Your testing is very reassuring. Based on your personal health history and your family history I think it is very unlikely that your symptoms today represent any acutely dangerous process. This pain may have been some kind of gastrointestinal discomfort or esophageal reflux. You may try Tums or similar antacids to see if they help. Please contact your regular doctor's office on Wednesday morning for a follow up appointment to discuss this episode further. If at any point you feel significantly worse however, especially if you feel short of breath or if the pain seems somehow different or concerning, please return to the emergency room for re-evaluation. Prescriptions: No Action dgghhepnre-srfsjqcxxhpfr-tqwd [Fioricet] 50-300-40 mg capsule 1 cap PO ONCE PRN (Reason: migraine) 15 Days Qty: 15 0RF triamcinolone acetonide 0.1 % ointment 1 appl topical BID Qty: 80 1RF Rx Instructions: apply to rash on back for 2 weeks, stop 1 week, then repeat until healed montelukast [Singulair] 10 mg tablet 10 mg PO BEDTIME Qty: 30 1RF ParaGard T 380A 380 square mm intrauterine device intrauterine Referrals: Romy Jama, CIRCULAR GANG SAW OPERATOR-BC [Primary Care Provider, Internal Medicine] Interventions: ED Discharge Assessment Last Done: 08/20/24 00:08 Discharge Date/Time: 08/20/24 00:09 Print Language: Tamazight
[2024-08-19 23:45] LABS: Aspartate Amino Transferase 15 U/L (5-31)
[2024-08-20 00:06] VITALS: BP 116/51; PULSE 56; RESP 16; TEMP 36.8; O2SAT 98
[2024-08-20 00:08] VITALS: BP 116/51; PULSE 56; RESP 16; TEMP 36.8; O2SAT 98
== END 2024-08-20 00:09 | disposition home or self-care (01) ==
PROVIDERS: Emergency Provider Emergency Medicine; PCP Nurse Practitioner Family
DX: R07.9 Chest pain, unspecified (principal)
CPT/HCPCS: 36415; 80053; 83735; 84484; 85025; 93005; 99283; 99285

== ENCOUNTER → 2024-08-19 22:31 | Outpatient (BNV) | payer OTHER, SELFPAY | PROVIDERS: Emergency Provider Emergency Medicine; PCP Nurse Practitioner Family; Visit Provider Internal Medicine Cardiovascular Disease | DX: R07.9 Chest pain, unspecified (principal) | CPT/HCPCS: 93010 ==